=== PATIENT | female | born 1955 | race Caucasian/White ===

== ENCOUNTER 2017-05-28 11:22 | Day surgery (SDC) | payer MEDICARE, OTHER ==
[~2017-05-28 11:22] MED LIST: CEFAZOLIN 1 GM INJ; METOCLOPRAMIDE 10 MG INJ; ONDANSETRON 4 MG INJ
[2017-05-28] MEDS ORDERED: LIDOCAINE 1% (MPF) 30 ML INJ (13:34)
[2017-05-28] MEDS ORDERED: BUPIVACAINE 0.5% (SDV) 30 ML INJ (13:34)
[2017-05-28] MEDS ORDERED: FENTAnyl 50 MCG/ML VIAL (13:54)
[2017-05-28] MEDS ORDERED: MIDAZOLAM 1 MG/ML 2 ML INJ (13:55)
[2017-05-28] MEDS ORDERED: ROPIVACAINE 0.5 % 30 ML VIAL (14:28)
[2017-05-28] MEDS ORDERED: LIDOCAINE 100 MG SYRINGE (15:31)
[2017-05-28] MEDS ORDERED: PROPOFOL 20 ML (15:31)
[2017-05-28] MEDS ORDERED: HYDROmorphONE (0.2 MG/ML) 10ML SYG IV (16:30)
[2017-05-28] MEDS ORDERED: ONDANSETRON 4 MG INJ IV (16:30)
[2017-05-28] MEDS ORDERED: METOCLOPRAMIDE 10 MG INJ IV (16:30)
[2017-05-28] MEDS ORDERED: IPRATROPIUM (NEB) 0.5 MG/2.5 ML AMP HHN (16:30)
[2017-05-28] MEDS ORDERED: DIPHENHYDRAMINE 50 MG INJ IV (16:30)
[2017-05-28] MEDS ORDERED: hydrALAzine 20 MG INJ IV (16:30)
[2017-05-28] MEDS ORDERED: LABETALOL HCL 20MG INJ IV (16:30)
[2017-05-28] MEDS ORDERED: FENTAnyl 50 MCG/ML VIAL IV ×2 (16:30)
[2017-05-28] MEDS: HYDROmorphONE (0.2 MG/ML) 10ML SYG IV (16:52)
== END 2017-05-28 18:17 | disposition home or self-care (01) ==
LOC: SDS 11:22
DX: M19.042 Primary osteoarthritis, left hand (principal); G56.02 Carpal tunnel syndrome, left upper limb; S63.642D Sprain of metacarpophalangeal joint of left thumb, subsequent encounter; X58.XXXD Exposure to other specified factors, subsequent encounter
CPT/HCPCS: 26542